=== PATIENT | female | born 1950 | race Caucasian/White ===

== ENCOUNTER → 2018-02-15 | Outpatient (CLI) | payer OTHER, BC | LOC: FIMAGING 08:01 | PROVIDERS: ATTEND Internal Medicine | DX: Z12.31 Encounter for screening mammogram for malignant neoplasm of breast (principal); Z80.3 Family history of malignant neoplasm of breast ==

== ENCOUNTER → 2018-06-28 | Outpatient (CLI) | payer OTHER, BC | LOC: BMCIMAGING 13:13 | PROVIDERS: ATTEND Orthopaedic Surgery | DX: M17.11 Unilateral primary osteoarthritis, right knee (principal) ==

== ENCOUNTER → 2018-08-24 | Outpatient (CLI) | payer OTHER, BC | LOC: FIMAGING 09:30 | PROVIDERS: ATTEND Orthopaedic Surgery | DX: Z01.818 Encounter for other preprocedural examination (principal); M17.11 Unilateral primary osteoarthritis, right knee ==

== ENCOUNTER 2018-08-30 07:15 | Observation (INO) | payer OTHER, BC ==
[2018-09-13] MEDS ORDERED: ROPIVACAINE 0.2% 80 MG, EPINEPHrine 0.2 MG, KETOROLAC TROMETHAMINE 30 MG, morphINE 10 M... IU ONE (06:00)
[2018-09-13] MEDS ORDERED: TRANEXAMIC ACID 1,000 MG in NS 100 ML IV ONE (06:00)
[2018-09-13] MEDS ORDERED: ceFAZolin 2 GM/DEXTROSE 100 ML IV ONE (06:02)
[2018-09-13] MEDS ORDERED: ACETAMINOPHEN 325 MG TAB PO ONE (06:02)
[2018-09-13] MEDS ORDERED: FAMOTIDINE 20 MG TAB PO ONE (06:02)
[2018-09-13] MEDS ORDERED: LR 1,000 ML IV ONE (06:04)
--- NOTE | 2018-09-13 06:36 | PDHPUP ---
History & Physical Update H&P update statement: This history and physical update is based on an assessment of the patient which was completed after admission or registration (within 24 hours), but prior to the surgery/procedure. H&P update: no change in patient's condition since H&P completed
--- NOTE | 2018-09-13 06:37 | PDIAF ---
- Diagnosis Diagnosis: right knee med arthritis Code Status: Full Code - Medication Management Discharge Medications: electronically signed and located in the Home Medication List. - Orders Services needed: Home Care, Physical Therapy Home Care Face to Face: I certify that this patient was under my care and that I had the required ssxk-sp-wout encounter meeting the encounter requirements on the discharge day. My findings support the fact that the patient is homebound as defined in Home Care Face to Face Continued: CMS Chapter 7 Medicare Benefits Manual 30.1.1 , The condition of the patient is such that there exists a normal inability to leave home and consequently, leaving home would require a considerable and taxing effort. Diet Recommendation: no restrictions on diet Diet Texture: Regular Texture Diet Additional Instructions: TOTAL JOINT ARTHROPLASTY DISCHARGE INSTRUCTIONS 1. Your surgeon follows the [facility] protocol for reducing your risk of DVT (blood clots) following surgery. Medication will be ordered to prevent blood clots. A sudden increase in calf pain and/or swelling could indicate a blood clot in your leg. If this occurs, please call your surgeon or his/her assisted living assistant. An ultrasound of the leg may be necessary to diagnose a blood clot. If you have conditions that make you a higher risk for blood clots, your surgeon may use more aggressive ways to prevent them. Notify your surgeon if you think you are a high risk for blood clots. 2. Wear your white surgical stockings (VETO hose) for 2 weeks. This decreases your swelling and may help prevent blood clots. It is ok to remove VETO hose at night time to give your legs a break. 3. Swelling and bruising in the surgical leg is common. If you feel that it is excessive, please notify your surgeon. 4. Elevate your surgical leg with the ankle above the hip several times every day. Please keep the leg straight when you elevate by putting pillows under your foot. Do not put pillows under your knee. This will make being able to fully straighten more difficult. This is uncomfortable, but try to do it as much as possible. 5. For total knee replacements use compressive wrap on your knee for 3-5 days after surgery, then you can discontinue it. 6. Use a walker or crutches for 1-2 weeks. Progress your weight-bearing as tolerated. You may start to use a cane when you feel stable and safe. 7. You will receive physical therapy instructions in the hospital. Continue those exercises at home. There are additional exercises in the total joint booklet you were given before surgery. Outpatient physical therapy will begin 7- 10 days after surgery. Please schedule this in advance. 8. Use ice on your knee at least 3-5 times every day for 30 minutes. This helps reduce pain and swelling. Also use it at night before falling asleep. 9. Leave your surgical dressing in place for 2 weeks. Your dressing is water resistant, but not waterproof. Cover it with Saran Wrap or Tjjmc-h-Fnvi before showering. You may shower as soon as you feel safe entering a shower. If you notice bleeding from your incision 2 or 3 days after surgery, please notify your surgeon. 10. Due to narcotics, decreased activity and altered diet, most patients experience constipation after surgery. Use lwgp-mlk-kbqhsfe stool softeners while you are on narcotics. 11. You may drive a car when you are comfortable bearing weight, have good muscular control of your leg and are off narcotics. This usually occurs 2-4 weeks after surgery, depending on which leg was operated on. 12. If there are questions not addressed here, please refer the [facility] book given for more information. If you still have questions, please contact your surgeon s office. 13. If you have a life-threatening emergency, please call 911 and go to the emergency room immediately. For non-life threatening emergencies, please call your physicians office for advice before going to the emergency room. - Follow Up Care Current Providers and Referrals: Minda Perkins MD [Primary Care Provider] - Thom Gutierrez MD [Medical Doctor] -
[2018-09-13] MEDS ORDERED: CALCIUM CHLORIDE 1 GM/10 ML INJ ONE (06:45)
[2018-09-13] MEDS ORDERED: THROMBIN (BOVINE) 5,000 UNIT VIAL TP ONE (06:45)
[2018-09-13] MEDS ORDERED: ceFAZolin 1 GM/5 ML SYR ONE (06:46)
[2018-09-13] MEDS ORDERED: MIDAZOLAM 2 MG/2 ML VIAL ONE (07:15)
[2018-09-13] MEDS ORDERED: LIDOCAINE 2% 5 ML SDV ONE (07:17)
[2018-09-13] MEDS ORDERED: PROPOFOL/EMULSION 500 MG/50 ML BOTTLE IV ONE (07:17)
[2018-09-13] MEDS ORDERED: MIDAZOLAM 2 MG/2 ML VIAL IVP ONE (07:35)
[2018-09-13] MEDS ORDERED: ROPIVACAINE HCL 150 MG/30 ML INJ ONE (07:43)
[2018-09-13] MEDS ORDERED: EPINEPHrine 1 MG/ML INJ ONE (07:44)
--- NOTE | 2018-09-13 07:51 | PDANEPAE ---
ANE History of Present Illness knee arthroplasty ANE Past Medical History - Cardiovascular History Hx Hypertension: No Hx Arrhythmias: No Hx Chest Pain: No Hx Coronary Artery / Peripheral Vascular Disease: No Hx CHF / Valvular Disease: No Hx Palpitations: No - Pulmonary History Hx COPD: No Hx Asthma/Reactive Airway Disease: Yes Hx Recent Upper Respiratory Infection: No Hx Oxygen in Use at Home: No Hx Sleep Apnea: Yes Sleep Apnea Screening Result - Last Documented: Positive Pulmonary History Comment: ASTHMA ENVIRONMENTAL TRIGGERS. SELDOM USES INHALER. DX REGINALDO CURRENTLY NOT USING ANY DEVICES OR OXYGEN - Neurologic History Hx Cerebrovascular Accident: No Hx Seizures: No Hx Dementia: No - Endocrine History Hx Diabetes: No - Renal History Hx Renal Disorders: No - Liver History Hx Hepatic Disorders: No - Neurological & Psychiatric Hx Hx Neurological and Psychiatric Disorders: Yes Neurological / Psychiatric History Comment: DEPRESSION - Cancer History Hx Cancer: No - Congenital Disorder History Hx Congenital Disorders: No - GI History Hx Gastrointestinal Disorders: Yes Gastrointestinal History Comment: OCCASIONAL HEARTBURN IF EATS LATE OR EATS LOTS OF TOMATO'S - Other Health History Other Health History: 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 ( MUSCLE THAT MOVES IN HER THROAT THAT AT TIMES WILL AFFECT HER SPEECH. PSORIASIS ELBOW. OSTEOARTHRITIS - Chronic Pain History Chronic Pain: Yes (MARCIE KNEE'S) - Surgical History Prior Surgeries: HYSTERECTOMY WITH BSO. SPLEENECTOMY 91 FROM TRAUMA. MARCIE BIG TOE. LT WRIST RECONSTRUCTION 2012. LT KNEE SCOPE 2017 ANE Review of Systems Review of Systems: - Exercise capacity Exercise capacity: >=4 METS METS (RN): 6 METS ANE Patient History - Allergies Allergies/Adverse Reactions: No Known Allergies Allergy (Unverified 08/18/18 13:56) - Home Medications Home medications: home medication list seen and reviewed Home Medications: Albuterol [Proventil Inhaler HFA (*)] 1 - 2 puffs IH Q4H PRN 08/18/18 [Last Taken 1 Year Ago ~09/13/17] Aspirin [Aspirin 81mg (*)] 81 mg PO DAILY 08/18/18 [Last Taken 1 Week Ago ~09/06] Atorvastatin Calcium [Lipitor 40 mg (*)] 40 mg PO DAILY 08/18/18 [Last Taken 03/26 05:00] Betamethasone/Propylene Glyc [Betamethasone Dp Aug 0.05% Crm] 1 diana TP DAILY PRN 08/18/18 [Last Taken 3 Days Ago ~09/10/18] Cetirizine [ZyrTEC 10 mg (*)] 10 mg PO DAILY PRN 08/18/18 [Last Taken 2 Weeks Ago ~08/30/18] Cholecalciferol Vit D3 [Vitamin D3 (*)] 1,000 units PO DAILY 08/18/18 [Last Taken 1 Week Ago ~09/06/18] Estradiol [VAGIFEM] 10 mcg VG DAILY 08/18/18 [Last Taken 09/10/18] Famotidine [Pepcid 20 MG (*)] 20 mg PO DAILY PRN 08/18/18 [Last Taken 09/06/18] Herbals/Supplements -Info Only 1 ea PO DAILY 08/18/18 [Last Taken 1 Week Ago ~] LORazepam [Ativan (*)] 1 mg PO HS PRN 08/18/18 [Last Taken 1 Month Ago ~08/13/18 ] Omeprazole 20 mg PO DAILY PRN 08/18/18 [Last Taken 09/06/18] Sertraline HCl [Zoloft 50mg (*)] 50 mg PO DAILY 08/18/18 [Last Taken 09/13/18 05 :00] Naproxen Sodium [Aleve 220 MG (*)] 220 mg PO BID PRN 09/13/18 [Last Taken 1 Week Ago ~09/06/18] - NPO status NPO Status: no food or drink >8 hours NPO Since - Liquids (Date): 09/12/18 NPO Since - Liquids (Time): 20:00 NPO Since - Solids (Date): 09/12/18 NPO Since - Solids (Time): 18:00 - Smoking Hx Smoking Status: Never smoked ANE Labs/Vital Signs - Vital Signs Blood Pressure: 126/72 Heart Rate: 68 Respiratory Rate: 14 O2 Sat (%): 92 Height: 172.72 cm Weight: 74.389 kg ANE Physical Exam - Airway Mallampati Score: Class 2 Mouth exam: normal dental/mouth exam - Pulmonary Pulmonary: no respiratory distress - Cardiovascular Cardiovascular: regular rate and rhythym - ASA Status ASA Status: II ANE Anesthesia Plan Anesthesia Plan: spinal Regional Anesthesia: adductor canal FNB
[2018-09-13] MEDS ORDERED: ALBUTEROL 3 ML DEYVIAL IH PRN (08:17)
[2018-09-13] MEDS ORDERED: ONDANSETRON 4 MG/2 ML VIAL IVP PRN ×2 (08:17→08:27)
[2018-09-13] MEDS ORDERED: HYDROmorphONE/DILAUDID 2 MG/ML INJ IVP PRN (08:17)
[2018-09-13] MEDS ORDERED: LR 500 ML IV PRN (08:17)
[2018-09-13] MEDS ORDERED: NALOXONE HCL 0.4 MG/ML INJ IVP PRN (08:17)
[2018-09-13] MEDS ORDERED: PROPOFOL 200 MG/20 ML VIAL ONE (08:25)
[2018-09-13] MEDS ORDERED: diphenhydrAMINE 25 MG CAP PO PRN (08:27)
[2018-09-13] MEDS ORDERED: DIPHENOXYLATE/ATROPINE LOMOTIL 1 TAB PO PRN (08:27)
[2018-09-13] MEDS ORDERED: BISACODYL 10 MG SUPP PR PRN (08:27)
[2018-09-13] MEDS ORDERED: ONDANSETRON DISINTEGRATING 4 MG TAB PO PRN (08:27)
[2018-09-13] MEDS ORDERED: CYCLOBENZAPRINE 10 MG TAB PO PRN (08:27)
[2018-09-13] MEDS ORDERED: LACTULOSE 20 GM/30 ML UDCUP PO PRN (08:27)
[2018-09-13] MEDS ORDERED: TEMAZEPAM 15 MG CAP PO PRN (08:27)
[2018-09-13] MEDS ORDERED: MAGNESIUM HYDROXIDE 30 ML UDCUP PO PRN (08:27)
[2018-09-13] MEDS ORDERED: PROMETHAZINE HCL 25 MG/ML INJ IVP PRN (08:27)
[2018-09-13] MEDS ORDERED: POLYETHYLENE GLYCOL 3350 17 GM PKT PO PRN (08:27)
[2018-09-13] MEDS ORDERED: PROMETHAZINE HCL 25 MG SUPPR PR PRN (08:27)
[2018-09-13] MEDS ORDERED: METOCLOPRAMIDE 10 MG/2 ML VIAL IVP PRN (08:27)
[2018-09-13] MEDS ORDERED: LORazepam 1 MG TAB PO PRN (08:28)
[2018-09-13] MEDS ORDERED: CETIRIZINE 10 MG TAB PO PRN (08:28)
[2018-09-13] MEDS ORDERED: BETAMETHASONE AUGMENTED 0.05% 15GM CREAM TP PRN (08:28)
[2018-09-13] MEDS ORDERED: FAMOTIDINE 20 MG TAB PO PRN (08:28)
[2018-09-13] MEDS ORDERED: LR 1,000 ML IV SCH (08:30)
--- NOTE | 2018-09-13 08:30 | POSTOPPROG ---
Post Op Note Date of Operation: 09/13/18 Surgeon: Thom Gutierrez Trust Evaluation Supervisor: shruthi Anesthesiologist: emily Anesthesia: Spinal Pre-op Diagnosis: right med knee djd Post-op Diagnosis: same Indication: same Procedure: right knee med abbie Inf/Abcess present in the surg proc area at time of surgery?: No Depth: Deep Incisional (Fascial) EBL: 50-100
--- NOTE | 2018-09-13 08:53 | POSTANESTH ---
Post Anesthetic Evaluation Cardiovascular Status: Normal, Stable Respiratory Status: Normal, Stable Level of Consciousness/Mental Status: Can Participate in Eval Pain Control: Adequate, Prn Tx Ordered Nausea/Vomiting Control: Adequate, Prn Tx Ordered Complications Possibly Related to Anesthesia: None Noted
[2018-09-13] MEDS: ATORVASTATIN CALCIUM 40 MG TAB PO SCH (10:07)
[2018-09-13] MEDS: SENNOSIDES/DOCUSATE SODIUM TAB PO SCH ×2 (10:08→21:03)
[2018-09-13] MEDS: Estradiol [Vagifem] 10 MCG VG SCH (10:09)
[2018-09-13] MEDS: SERTRALINE HCL 50 MG TAB PO SCH (10:10)
[2018-09-13] MEDS: ACETAMINOPHEN 325 MG TAB PO SCH ×3 (12:11→23:45)
[2018-09-13] MEDS: TRANEXAMIC ACID 650 MG TAB PO SCH ×2 (14:14→21:03)
[2018-09-13] MEDS: ceFAZolin 2 GM/DEXTROSE 100 ML IV SCH ×2 (14:16→21:07)
--- NOTE | 2018-09-13 14:33 | ASMTCMCOM ---
CM Note CM Note Notes: Pt is s/p R TKA. PT/OT have cleared. Spoke with pt and she said her will be there to assist her. Anticipate d/c with no CM needs when medically cleared. D/C Plan: Anticipate Home Independent Date Signed: 09/13/2018 02:10 PM Electronically Signed By:ALEENA Reed
--- NOTE | 2018-09-13 16:07 | SOAPPROG ---
SOAP Progress Note Assessment/Plan: Assessment: s/p partial knee Plan:stable did not clear therapy home tomorrow dvt precautions 09/13/18 16:05 Subjective: min pain no cp or sob jazzy po Objective: Vital Signs Temp Pulse Resp BP Pulse Ox 36.5 C 65 17 142/74 H 94 09/13/18 15:45 09/13/18 15:45 09/13/18 15:45 09/13/18 15:45 09/13/18 15:45 09/12/18 09/13/18 09/14/18 05:59 05:59 05:59 Intake Total 500 Output Total 0 Balance 500 intact pf,df,ehl toes warm and pink neg homans aurelio xrays anatomic alignment no fx or lucency ICD10 Worksheet Patient Problems: Problems Problem Status Onset Arthritis of knee Acute - ICD10 Problem Qualifiers (1) Arthritis of knee
[2018-09-13] MEDS: ASPIRIN 325 MG TAB PO SCH (21:04)
[2018-09-13] MEDS: FAMOTIDINE 20 MG TAB PO SCH (21:04)
[2018-09-14] MEDS: oxyCODONE IR 5 MG TAB PO PRN ×3 (02:08→10:20)
[2018-09-14] MEDS: TRANEXAMIC ACID 650 MG TAB PO SCH (05:45)
[2018-09-14] MEDS: ACETAMINOPHEN 325 MG TAB PO SCH ×2 (05:45→12:21)
--- NOTE | 2018-09-14 07:26 | SOAPPROG ---
SOAP Progress Note Assessment/Plan: Assessment: s/p partial knee Plan:stable did not clear therapy home tomorrow dvt precautions 09/13/18 16:05 Subjective: mild pain no cp or sob Objective: Vital Signs Temp Pulse Resp BP Pulse Ox 36.4 C 73 16 135/68 H 90 L 09/14/18 03:52 09/14/18 03:52 09/14/18 03:52 09/14/18 03:52 09/14/18 03:52 Laboratory Results 09/14/18 04:20 09/13/18 09/14/18 09/15/18 05:59 05:59 05:59 Intake Total 1900 Output Total 1300 Balance 600 dressing intact intact pdf,ehl toes warm and pink neg homans aurelio anatomic alignement on xrays, no fx or lucency ICD10 Worksheet Patient Problems: Problems Problem Status Onset Arthritis of knee Acute - ICD10 Problem Qualifiers (1) Arthritis of knee
--- NOTE | 2018-09-14 07:26 | PDIAF ---
- Diagnosis Diagnosis: right knee med arthritis Code Status: Full Code - Medication Management Discharge Medications: electronically signed and located in the Home Medication List. - Orders Services needed: Home Care, Physical Therapy Home Care Face to Face: I certify that this patient was under my care and that I had the required wwlr-bi-uigr encounter meeting the encounter requirements on the discharge day. My findings support the fact that the patient is homebound as defined in Home Care Face to Face Continued: CMS Chapter 7 Medicare Benefits Manual 30.1.1 , The condition of the patient is such that there exists a normal inability to leave home and consequently, leaving home would require a considerable and taxing effort. Diet Recommendation: no restrictions on diet Diet Texture: Regular Texture Diet Additional Instructions: TOTAL JOINT ARTHROPLASTY DISCHARGE INSTRUCTIONS 1. Your surgeon follows the [facility] protocol for reducing your risk of DVT (blood clots) following surgery. Medication will be ordered to prevent blood clots. A sudden increase in calf pain and/or swelling could indicate a blood clot in your leg. If this occurs, please call your surgeon or his/her chemist assistant. An ultrasound of the leg may be necessary to diagnose a blood clot. If you have conditions that make you a higher risk for blood clots, your surgeon may use more aggressive ways to prevent them. Notify your surgeon if you think you are a high risk for blood clots. 2. Wear your white surgical stockings (VETO hose) for 2 weeks. This decreases your swelling and may help prevent blood clots. It is ok to remove VETO hose at night time to give your legs a break. 3. Swelling and bruising in the surgical leg is common. If you feel that it is excessive, please notify your surgeon. 4. Elevate your surgical leg with the ankle above the hip several times every day. Please keep the leg straight when you elevate by putting pillows under your foot. Do not put pillows under your knee. This will make being able to fully straighten more difficult. This is uncomfortable, but try to do it as much as possible. 5. For total knee replacements use compressive wrap on your knee for 3-5 days after surgery, then you can discontinue it. 6. Use a walker or crutches for 1-2 weeks. Progress your weight-bearing as tolerated. You may start to use a cane when you feel stable and safe. 7. You will receive physical therapy instructions in the hospital. Continue those exercises at home. There are additional exercises in the total joint booklet you were given before surgery. Outpatient physical therapy will begin 7- 10 days after surgery. Please schedule this in advance. 8. Use ice on your knee at least 3-5 times every day for 30 minutes. This helps reduce pain and swelling. Also use it at night before falling asleep. 9. Leave your surgical dressing in place for 2 weeks. Your dressing is water resistant, but not waterproof. Cover it with Saran Wrap or Hmlyq-l-Eybh before showering. You may shower as soon as you feel safe entering a shower. If you notice bleeding from your incision 2 or 3 days after surgery, please notify your surgeon. 10. Due to narcotics, decreased activity and altered diet, most patients experience constipation after surgery. Use cydf-mqk-cwnyatg stool softeners while you are on narcotics. 11. You may drive a car when you are comfortable bearing weight, have good muscular control of your leg and are off narcotics. This usually occurs 2-4 weeks after surgery, depending on which leg was operated on. 12. If there are questions not addressed here, please refer the [facility] book given for more information. If you still have questions, please contact your surgeon s office. 13. If you have a life-threatening emergency, please call 911 and go to the emergency room immediately. For non-life threatening emergencies, please call your physicians office for advice before going to the emergency room. - Follow Up Care Current Providers and Referrals: Minda Perkins MD [Primary Care Provider] - Thom Gutierrez MD [Medical Doctor] -
[2018-09-14] MEDS: SENNOSIDES/DOCUSATE SODIUM TAB PO SCH (08:12)
[2018-09-14] MEDS: ASPIRIN 325 MG TAB PO SCH (08:12)
[2018-09-14] MEDS: ATORVASTATIN CALCIUM 40 MG TAB PO SCH (08:12)
[2018-09-14] MEDS: SERTRALINE HCL 50 MG TAB PO SCH (08:13)
[2018-09-14] MEDS: FAMOTIDINE 20 MG TAB PO SCH (08:13)
[2018-09-14] MEDS: Estradiol [Vagifem] 10 MCG VG SCH (09:38)
--- NOTE | 2018-09-14 10:53 | ASMTLACE ---
ROHINI Length of stay for Answers: 2 days current admission Acuity / Level of Answers: Yes Care: Did the patient have an inpatient admission? # of Emergency department Answers: 0 visits in the last 6 months Score: 5 Date Signed: 09/14/2018 10:53 AM Electronically Signed By:ALEENA Thakur
--- NOTE | 2018-09-14 11:32 | ASMTCMCOM ---
CM Note CM Note Notes: Pt wants [facility], chooses [facility]. Address/phone verified. Orders to be obtained via [employer]. Date Signed: 09/14/2018 11:31 AM Electronically Signed By:ALEENA Thakur
[2018-09-14 11:35] VITALS: BP 123/68
--- NOTE | 2018-09-14 16:19 | ASDISCHSUM ---
Discharge Information Plan Status:Home with Home Health Medically Cleared to Leave: Discharge Date:09/14/2018 01:06 PM CM D/C Disposition: ADT D/C Disposition:Home Health Service Projected Discharge Date:09/14/2018 11:00 AM Transportation at D/C: Discharge Delay Reason: Follow-Up Date:09/14/2018 11:00 AM Discharge Slot: Final Diagnosis: Placement Information Referral Type:*Home Health Care Services Referral ID:[id number] Provider Name:[facility] Address 1[address] Address 2: City:[place] Selection Factors: State:[place] Patient Contact Information Contact Name:MOY Relationship: Address: Home Phone: City: [facility] Phone: [facility] Code: Email: Financial Information Financial Class:Medicare Primary Plan Desc:MEDICARE OUTPATIENT Primary Plan Number:[id number] Secondary Plan Desc: OUT OF STATE [facility] Secondary Plan Number:[id number] Assessment Information LACE LACE Length of stay for Answers: 2 days current admission Acuity / Level of Answers: Yes Care: Did the patient have an inpatient admission? # of Emergency department Answers: 0 visits in the last 6 months Score: 5 Date Signed: 09/14/2018 10:53 AM Electronically Signed By:ALEENA Thakur [facility] Progress Note CM [place] CM Note Notes: Pt is s/p R TKA. PT/OT have cleared. Spoke with pt and she said her will be there to assist her. Anticipate d/c with no CM needs when medically cleared. D/C Plan: Anticipate Home Independent Date Signed: 09/13/2018 02:10 PM Electronically Signed By:ALEENA Reed BC CM Progress Note CM Note CM Note Notes: Pt wants [facility], chooses [facility]. Address/phone verified. Orders to be obtained via [employer]. Date Signed: 09/14/2018 11:31 AM Electronically Signed By:ALEENA Thakur Intervention Information Intervention Type:*Incorrect Registration Date of Service:09/13/2018 02:52 PM Patient Type:Inpatient Staff Member:Monique Alcocer Hours: Discipline: Severity: Comment:
--- NOTE | 2018-09-19 08:24 | GOP ---
DATE OF OPERATION: 09/13/2018 SURGEON: Thom Gutierrez MD GENERALIST: Fercho Galvan, surgical elastic knitter who was a medical necessity for the entirety of the case. PREOPERATIVE DIAGNOSIS: Right knee medial compartment arthritis. POSTOPERATIVE DIAGNOSIS: Right knee medial compartment arthritis. PROCEDURE PERFORMED: Right medial MAKOplasty, right knee. FINDINGS: SPECIMENS: To Pathology, none. INDICATIONS: The patient is a 67-year-old woman with advanced arthritis in the medial compartment of her right knee. She has mild arthritis to the patellofemoral articulation. She has interference wi th her activities of daily living. I have, therefore, recommended medial compartment arthroplasty. She understood the risks, benefits, alternatives, and wished to proceed. Written consent was signed and placed in patient's chart. DESCRIPTION OF PROCEDURE: The patient was identified in the preanesthesia area. The right knee cris rly demarcated as the operative site with indelible marker. She was given 2 g of Ancef intravenously in route to the operative suite. In the OR, a spinal anesthetic was placed. She was positioned in the supine position. Attention was turned to the right knee, which was sterilely prepped and draped in usual fashion. A t ourniquet was applied to the upper thigh. The limb was then sterilely prepped and draped in usual fa shion. Appropriate time-out procedure was carried out. The limb was exsanguinated with Esmarch band age. Tourniquet inflated to 275 mmHg. Standard anterior midline incision was made. Thick subcutaneous flaps were elevated, followed by med ial parapatellar arthrotomy. There was clear arthritis within the medial compartment. Decision was made to proceed with medial compartment arthroplasty. Separate percutaneous incision was made over the mid femur and mid shinm2 pins were then placed in ea ch area, and the femoral and tibial reference array was affixed. A femoral and tibial check point wa s then placed. Using MAKOplasty software, all bony landmarks were entered into the computer. The knee was balanced through the flexion, extension arc. Resections were made for a size 3 femur, size 3 tibia, and a 3 x 8 mm polyethylene spacer trial was placed. This allowed full extension and flexion with no instabil ity through the flexion extension arc. The trial components were withdrawn. The bony surfaces were thoroughly cleansed and dried in a sequential fashion and the tibial and femor al components were then cemented into place. The marginal cement was withdrawn. A 3 x 8 mm polyethy marco antonio spacer was placed and confirmed to be fully seated. Once the cement had fully cured, the knee w as taken through range of motion, was stable and appropriate. The wound was copiously irrigated. Th e capsule and tissues were injected with a joint cocktail of ropivacaine, morphine, Toradol, and epin ephrine. The medial parapatellar arthrotomy closed using #1 Ethibond suture. The subcutaneous tissu e using 2-0 Monocryl and the skin with a ZipLine closure. A sterile dressing was applied. The patie nt was awakened, extubated, and taken to recovery room in good, stable condition. TOTAL TOURNIQUET TIME: 35 minutes. COMPLICATIONS: None. IMPLANTS: The MAKOplasty femoral component size 3, size 3 tibia, 3 x 8 mm X3 polyethylene insert. DISPOSITION: To the recovery room, then floor. She is weightbearing, range of motion as tolerated. /[id number]/MODL
--- NOTE | 2018-09-19 09:10 | GDS ---
ADMISSION DIAGNOSIS: Right knee medial compartment arthritis, right knee. POSTOPERATIVE DIAGNOSIS: Right knee medial compartment arthritis, right knee. PROCEDURE: Right medial compartment arthroplasty-MAKOplasty. HISTORY OF PRESENT ILLNESS: The patient is a 67-year-old woman with end-stage arthritis to the media l aspect of her right knee. She presents for elective medial compartment arthroplasty. HOSPITAL COURSE: Patient was admitted after uncomplicated medial MAKOplasty. She tolerated the proc edure well. Postoperatively, she was delayed in her therapy, secondary to numbness across her leg fo llowing the spinal. At the time of discharge, she is tolerating an oral diet, pain is well-controlle d on oral medicine. She is voiding without difficulty. Dressing is clean, dry, and intact. DISCHARGE ACTIVITY: Weightbearing. Range of motion as tolerated. May shower without the bandage in place. No soaking or immersion. FOLLOWUP: In 2 weeks. Seek attention for increasing redness, swelling, drainage, discharge, leg roger n, shortness of breath, or other focal complaints. DISCHARGE MEDICATIONS: Oxycodone 5 mg, aspirin 325 mg p.o. daily for 6 weeks. /[id number]/MODL
== END 2018-09-14 13:06 | disposition home health service (06) ==
LOC: INTOOBSV 09-13 05:42 → F3N 09-13 05:42
PROVIDERS: ADMIT Orthopaedic Surgery; ATTEND Orthopaedic Surgery
PROC: 0SRC0L9 Replacement of Right Knee Joint with Medial Unicondylar Synthetic Substitute, Cemented, Open Approach (ICD-10-PCS; principal; 2018-09-13 07:15)
DX: M17.11 Unilateral primary osteoarthritis, right knee (principal)
CPT/HCPCS: 27446; 73560; 97116; 97161; 97165; 97530; 97535; C1713; C1776; G8978; G8979; G8980; G8987; G8988; G8989; J0171; J0690; J1885; J2250; J2270; J2704; J2795

== ENCOUNTER → 2018-10-26 | Outpatient (CLI) | payer OTHER, BC | END | disposition home or self-care (01) | LOC: BMCIMAGING 09:55 | PROVIDERS: ATTEND Physician Assistant | DX: M25.461 Effusion, right knee (principal); M23.41 Loose body in knee, right knee; Z98.890 Other specified postprocedural states ==

== ENCOUNTER → 2018-12-08 | Outpatient (CLI) | payer OTHER, BC | LOC: BMCIMAGING 08:37 | PROVIDERS: ATTEND Orthopaedic Surgery | DX: Z47.1 Aftercare following joint replacement surgery (principal); Z96.651 Presence of right artificial knee joint ==

== ENCOUNTER → 2019-02-23 | Outpatient (CLI) | payer OTHER, BC | LOC: FIMAGING 08:17 | PROVIDERS: ATTEND Internal Medicine | DX: Z12.31 Encounter for screening mammogram for malignant neoplasm of breast (principal); Z13.820 Encounter for screening for osteoporosis; M85.89 Other specified disorders of bone density and structure, multiple sites ==